=== PATIENT | female | born 1995 | race Caucasian/White ===

== ENCOUNTER 2017-02-17 08:37 | Emergency (ER) | payer OTHER, SELFPAY ==
[2017-02-17] MEDS ORDERED: Lactated Ringers 1,000 ML IV SCH (09:00)
[2017-02-17] MEDS ORDERED: Ondansetron 4 MG Tab.DIS PO ONE (09:01)
[2017-02-17] MEDS ORDERED: HYDROmorphone 2 MG/ML SDV IVPUSH ONE ×3 (09:01→11:37)
--- NOTE | 2017-02-17 09:08 | EDM.PDOC ---
ED HPI GENERAL MEDICAL PROBLEM - General Chief Complaint: Abdominal Pain Stated Complaint: STOMACH PAIM RT SIDE Time Seen by Provider: 02/17/17 08:50 Source of Information: Reports: Patient History Limitations: Reports: No Limitations - History of Present Illness INITIAL COMMENTS - FREE TEXT/NARRATIVE: 21 yo female awoke about 0400h today with R mid abdominal pain. Has nausea. No fever. No hx of any prior abdominal surgeries. Says she is not . Last BM was yesterday. No urinary sx's. Pain has gotten slightly worse since its onset, but does not move around. Onset: Today Onset Date: 02/17/17 Onset Time: 04:00 Duration: Hour(s):, Getting Worse Location: Reports: Abdomen Quality: Reports: Ache Severity: Moderate Improves with: Reports: Immobilization Worsens with: Reports: Movement Context: Reports: Other (unknown, no hx of the same.) Associated Symptoms: Reports: Nausea/Vomiting (No vomiting yet.) Treatments CARTOGRAPHY TECHNICIAN: Reports: Other (see below) (none) Other Treatments CARTOGRAPHY TECHNICIAN: none Right Abdominal Pain Score (Numeric/FACES): 10 - Related Data Allergies Allergy/AdvReac Type Severity Reaction Status Date / Time cats Allergy Hives Uncoded 06/01/15 16:31 Home Meds: Home Meds Norethindrone AC-Eth Estradiol [Gildess 1 mg-20 Mcg Tablet] 1 tab PO DAILY 06/01 [History] Acetaminophen/HYDROcodone [Dyer 325-5 MG] 1 - 2 tab PO Q4H PRN #8 tab 02/17/17 [Rx] Ondansetron [Zofran ODT] 4 mg PO Q6H PRN #4 tab.dis 02/17/17 [Rx] Past Medical History - Past Health History Medical/Surgical History: Denies Medical/Surgical History Social & Family History - Tobacco Use Smoking Status *Q: Never Smoker Second Hand Smoke Exposure: No - Alcohol Use Days Per Week of Alcohol Use: 0 - Recreational Drug Use Recreational Drug Use: No ED ROS GENERAL - Review of Systems Review Of Systems: See Below Constitutional: Reports: No Symptoms HEENT: Reports: No Symptoms Respiratory: Reports: No Symptoms Cardiovascular: Reports: No Symptoms Endocrine: Reports: No Symptoms GI/Abdominal: Reports: Abdominal Pain, Decreased Appetite, Nausea. Denies: Black Stool, Bloody Stool, Constipation, Diarrhea, Distension, Flatus, Hematemesis, Hematochezia, Melena, Mucous in Stool, Stool Incontinence, Vomiting : Reports: No Symptoms Musculoskeletal: Reports: No Symptoms Skin: Reports: No Symptoms Neurological: Reports: No Symptoms Psychiatric: Reports: No Symptoms ED EXAM, GI/ABD - Physical Exam Exam: See Below Exam Limited By: No Limitations General Appearance: Alert, WD/WN, No Apparent Distress Eyes: Bilateral: Normal Appearance, EOMI Ears: Normal External Exam, Normal Canal, Hearing Grossly Normal, Normal TMs Nose: Normal Inspection, Normal Mucosa, No Blood Throat/Mouth: Normal Inspection, Normal Lips, Normal Teeth, Normal Oropharynx, Normal Voice, No Airway Compromise Head: Atraumatic, Normocephalic Neck: Normal Inspection, Supple, Non-Tender Respiratory/Chest: No Respiratory Distress, Lungs Clear, Normal Breath Sounds, No Accessory Muscle Use Cardiovascular: Regular Rate, Rhythm, No Edema GI/Abdominal Exam: Soft, No Distention, Rebound (mild), Tender (R mid abdominal area, just above McBurney's Point.). No: Distended, Guarding, Rigid Back Exam: Normal Inspection, Full Range of Motion. No: CVA Tenderness (R), CVA Tenderness (L) Extremities: Normal Inspection, Normal Range of Motion, Non-Tender, No Pedal Edema Neurological: Alert, Oriented, CN II-XII Intact, Normal Cognition, No Motor/ Sensory Deficits Psychiatric: Normal Affect, Normal Mood Skin Exam: Warm, Dry, Intact, Normal Color, No Rash Lymphatic: No Adenopathy Course - Vital Signs Text/Narrative:: LR IV @ 150 ml/h, Zofran ODT 4 mg SL, Dilaudid 0.5 mg IV x 2 + 1 mg IV, Toradol 30 mg IV US of abd/pelvis-Free pelvic fluid, no other pathology, suspect ruptured ovarian cyst. Was given a lunch tray which resulted in an emesis, Reglan 10 mg IV given Last Recorded V/S: Last Vital Signs Temp 36.8 C 02/17/17 08:47 Pulse 76 02/17/17 13:45 Resp 16 02/17/17 13:45 BP 118/76 02/17/17 13:45 Pulse Ox 98 02/17/17 13:45 - Orders/Labs/Meds Orders: Active Orders 24 hr Category Date Time Status Lactated Ringers [Ringers, Lactated] 1,000 ml Med 02/17/17 09:00 Active IV ASDIRECTED Medication Orders Lactated Ringer's (Ringers, Lactated) 1,000 mls @ 150 mls/hr IV ASDIRECTED GABE Last Admin: 02/17/17 09:21 Dose: 150 mls/hr Labs: Laboratory Tests 02/17/17 02/17/17 02/17/17 Range/Units 09:05 09:05 09:40 WBC 6.4 (4.5-12.0) X10-3/uL RBC 4.84 (3.23-5.20) x10(6)uL Hgb 14.4 (11.5-15.5) g/dL Hct 43.1 (30.0-51.3) % MCV 89.1 (80-96) fL MCH 29.8 (27.7-33.6) pg MCHC 33.4 (32.2-35.4) g/dL RDW 12.0 (11.5-15.5) % Plt Count 243 (125-369) X10(3)uL Sodium 138 (135-145) mmol/L Potassium 3.8 (3.5-5.3) mmol/L Chloride 105 (100-110) mmol/L Carbon Dioxide 25 (23-29) mmol/L BUN 20 (5-20) mg/dL Creatinine 1.0 (0.5-1.0) mg/dL Est Cr Clr Drug Dosing 71.57 mL/min Estimated GFR (MDRD) > 60 (>60) BUN/Creatinine Ratio 20.0 (9-20) Glucose 93 (80-116) mg/dL Calcium 9.3 (8.2-10.1) mg/dL Urine Color (YELLOW) Urine Appearance (CLEAR) Urine pH (5.0-6.5) Ur Specific [place] (1.010-1.025) Urine Protein (NEGATIVE) mg/dL Urine Glucose (UA) (NEGATIVE) mg/dL Urine Ketones (NEGATIVE) mg/dL Urine Occult Blood (NEGATIVE) Urine Nitrite (NEGATIVE) Urine Bilirubin (NEGATIVE) Urine Urobilinogen (NEGATIVE) mg/dL Ur Leukocyte Esterase (NEGATIVE) Urine RBC (0) Urine WBC (0) Ur Squamous Epith Cells (NS,R,O) Urine Bacteria (NS) Urine HCG, Qual Negative (NEGATIVE) 02/17/17 Range/Units 09:40 WBC (4.5-12.0) X10-3/uL RBC (3.23-5.20) x10(6)uL Hgb (11.5-15.5) g/dL Hct (30.0-51.3) % MCV (80-96) fL MCH (27.7-33.6) pg MCHC (32.2-35.4) g/dL RDW (11.5-15.5) % Plt Count (125-369) X10(3)uL Sodium (135-145) mmol/L Potassium (3.5-5.3) mmol/L Chloride (100-110) mmol/L Carbon Dioxide (23-29) mmol/L BUN (5-20) mg/dL Creatinine (0.5-1.0) mg/dL Est Cr Clr Drug Dosing mL/min Estimated GFR (MDRD) (>60) BUN/Creatinine Ratio (9-20) Glucose (80-116) mg/dL Calcium (8.2-10.1) mg/dL Urine Color Yellow (YELLOW) Urine Appearance Clear (CLEAR) Urine pH 5.0 (5.0-6.5) Ur Specific [place] 1.020 (1.010-1.025) Urine Protein Negative (NEGATIVE) mg/dL Urine Glucose (UA) Normal (NEGATIVE) mg/dL Urine Ketones Negative (NEGATIVE) mg/dL Urine Occult Blood Negative (NEGATIVE) Urine Nitrite Negative (NEGATIVE) Urine Bilirubin Negative (NEGATIVE) Urine Urobilinogen Normal (NEGATIVE) mg/dL Ur Leukocyte Esterase Negative (NEGATIVE) Urine RBC 0-5 (0) Urine WBC 5-10 (0) Ur Squamous Epith Cells Few H (NS,R,O) Urine Bacteria Many H (NS) Urine HCG, Qual (NEGATIVE) Meds: Medications Generic Name Dose Route Start Last Admin Trade Name Freq PRN Reason Stop Dose Admin Lactated Ringer's 1,000 mls @ 150 mls/hr 02/17/17 09:00 02/17/17 09:21 Ringers, Lactated IV 150 mls/hr ASDIRECTED GABE Administration Discontinued Medications Generic Name Dose Route Start Last Admin Trade Name Freq PRN Reason Stop Dose Admin Hydromorphone HCl 0.5 mg 02/17/17 09:01 02/17/17 09:18 Dilaudid IVPUSH 02/17/17 09:02 0.5 mg ONETIME ONE Administration Hydromorphone HCl 0.5 mg 02/17/17 10:09 02/17/17 10:16 Dilaudid IVPUSH 02/17/17 10:10 0.5 mg ONETIME ONE Administration Hydromorphone HCl 1 mg 02/17/17 11:37 02/17/17 11:44 Dilaudid IVPUSH 02/17/17 11:38 1 mg ONETIME ONE Administration Ketorolac Tromethamine 30 mg 02/17/17 11:43 02/17/17 11:47 Toradol IVPUSH 02/17/17 11:44 30 mg ONETIME ONE Administration Metoclopramide HCl 10 mg 02/17/17 13:25 02/17/17 13:47 Reglan IVPUSH 02/17/17 13:26 10 mg ONETIME ONE Administration Ondansetron HCl 4 mg 02/17/17 09:01 02/17/17 09:19 Zofran Odt PO 02/17/17 09:02 4 mg ONETIME ONE Administration Departure - Departure Time of Disposition: 15:20 Disposition: Home, Self-Care 01 Condition: Fair Clinical Impression: Ruptured ovarian cyst - Discharge Information Prescriptions: Acetaminophen/HYDROcodone [Dyer 325-5 MG] 1 - 2 tab PO Q4H PRN #8 tab PRN Reason: Pain Ondansetron [Zofran ODT] 4 mg PO Q6H PRN #4 tab.dis PRN Reason: Nausea Referrals: Puma Starks MD [Primary Care Provider] - Forms: ED Department Discharge Additional Instructions: Take Dyer and/or ibuprofen as needed for pain relief. Take Zofran as needed for nausea control. Rest today. Clear liquids with slow advancement of diet as tolerated. Recheck tomorrow morning if pain persists. No driving today. - My Orders Last 24 Hours: My Active Orders 02/17/17 09:00 Lactated Ringers [Ringers, Lactated] 1,000 ml IV ASDIRECTED - Assessment/Plan Last 24 Hours: My Active Orders 02/17/17 09:00 Lactated Ringers [Ringers, Lactated] 1,000 ml IV ASDIRECTED
[2017-02-17] MEDS ORDERED: Ketorolac 30 MG/ML SDV IVPUSH ONE (11:43)
[2017-02-17] MEDS ORDERED: Metoclopramide 10 MG/2 ML SDV IVPUSH ONE (13:25)
--- NOTE | 2017-02-17 14:01 | US ---
INDICATION: Periumbilical and right lower quadrant abdominal pain with normal lab work. ULTRASOUND ABDOMEN COMPLETE: Multiple ultrasonic images revealed the gallbladder to be normal in size. It measured approximately 6 x 1.4 x 3 cm, with no calculi, sludge, wall thickening, pericholecystic fluid, or positive ultrasonic Kirk sign. There was, however, noted one tiny crystal floating within the bile of the gallbladder. This is not felt to be of significance at this time. The common bile duct was normal in caliber at 2.9 mm. The liver, both kidneys, aorta, and pancreas appeared normal with no mass lesions or free fluid collections identified in the abdomen. The area of the appendix showed no abnormalities visible. The spleen appeared normal. The abdominal aorta and IVC were unremarkable. The IVC was phasic. IMPRESSION: Normal abdominal ultrasound. MTDD
--- NOTE | 2017-02-17 14:12 | US ---
INDICATION: Right lower quadrant abdominal pain with normal labs. ULTRASOUND OF THE PELVIS, LIMITED, NON-OB: Multiple ultrasonic images were obtained with transabdominal probe. They were limited due to a large amount of intestinal gas. No gross abnormality was seen - no adnexal mass lesions or free fluid collections were identified on transabdominal probe ultrasound. Transvaginal probe ultrasound will be necessary for further evaluation. INDICATION: Periumbilical pain, right lower quadrant abdominal pain/need better visualization of the uterus and adnexal areas than was possible with the transabdominal probe. TRANSVAGINAL PELVIC ULTRASOUND, NON-OB: Utilizing transvaginal probe, multiple ultrasonic images were obtained and revealed the uterus to be retroflexed. A moderately large amount of free pelvic fluid is noted in the posterior cul-de- sac, likely on the basis of recently involuting ovarian cyst. The uterus measured 5.6 x 3.3 x 3.5 x 1.6 cm and had a normal appearance with normal endometrial cavity echo of 1.6 mm. Right ovary measured 3.3 x 1.3 x 2.8 cm with follicles present. No significant mass could be identified in that area. The left ovary measured 2.8 x 1.3 x 3 cm with only follicles present and no significant mass in the area of the left ovary. No adnexal mass lesions were identified. IMPRESSION: Moderate amount of free pelvic fluid in the posterior cul-de-sac, likely physiologic, but should be correlated clinically. The uterus is retroflexed. Pelvic ultrasound otherwise unremarkable. Report was called to Dr. Gilbert at 1215 hours, 02/17/2017. [facility] [place] [facility]
[2017-02-17 15:16] VITALS: BP 106/60
== END 2017-02-17 15:30 | disposition home or self-care (01) ==
LOC: FB.ED 08:37
DX: N83.202 Unspecified ovarian cyst, left side (principal); N83.201 Unspecified ovarian cyst, right side; Z91.048 Other nonmedicinal substance allergy status; Z79.899 Other long term (current) drug therapy
CPT/HCPCS: 76700; 76830; 76857; 80048; 81001; 81025; 85027; 96365; 96366; 96375; 96376; 99284; A9270; J1170; J1885; J2765; J7120; 96361; 96374

== ENCOUNTER 2017-02-19 14:36 | Day surgery (SDC) | payer OTHER ==
[2017-02-19] MEDS ORDERED: cefOXitin 2 GM in Sodium Chloride 0.9% 100 ML IV ONE ×2 (14:45→14:49)
[2017-02-19] MEDS ORDERED: Sodium Chloride 0.9% 10 ML Syringe FLUSH PRN (14:49)
--- NOTE | 2017-02-19 14:57 | PCM.SN ---
- Free Text/Narrative Note: H+P dictated. risk of procedure were explained to the pt to include bleeding, infection, injury to surrounding structures as well as conversion to open. She asks us to proceed.
[2017-02-19] MEDS: Lactated Ringers 1,000 ML IV SCH (15:00)
[2017-02-19] MEDS ORDERED: fentaNYL 100 MCG/2 ML SDV IVPUSH PRN (15:26)
[2017-02-19] MEDS ORDERED: Lactated Ringers 1,000 ML IV SCH (15:30)
[2017-02-19] MEDS ORDERED: Rocuronium 50 MG/5 ML Vial IV ONE (15:30)
[2017-02-19] MEDS ORDERED: Ondansetron 4 MG/2 ML SDV IVPUSH ONE (15:30)
[2017-02-19] MEDS ORDERED: Glycopyrrolate 0.2 MG/ML 5 ML MDV IV ONE (15:30)
[2017-02-19] MEDS ORDERED: Neostigmine Methylsulfate 10 MG/10 ML MDV IVPUSH ONE (15:30)
[2017-02-19] MEDS ORDERED: fentaNYL 100 MCG/2 ML SDV IV ONE (15:30)
[2017-02-19] MEDS ORDERED: Dexamethasone 4 MG/ML 5 ML MDV IVPUSH ONE (15:30)
[2017-02-19] MEDS ORDERED: Ketorolac 30 MG/ML SDV IVPUSH ONE (15:30)
[2017-02-19] MEDS ORDERED: Midazolam 1 MG/ML 2 ML SDV IV ONE (15:30)
[2017-02-19] MEDS ORDERED: Propofol 200 MG/20 ML SDV IV ONE (15:30)
[2017-02-19] MEDS ORDERED: Succinylcholine 200 MG/10 ML MDV IV ONE (15:30)
[2017-02-19] MEDS ORDERED: HYDROmorphone 2 MG/ML SDV IV ONE (15:30)
[2017-02-19] MEDS ORDERED: Lidocaine 1% with EPINEPHrine 1:100,000 20 ML MDV INJECT ONE (15:46)
[2017-02-19] MEDS ORDERED: Bupivacaine 0.5% 30 ML SDV INJECT ONE (15:46)
--- NOTE | 2017-02-19 15:53 | PREOP ---
ADMISSION DATE: 02/19/2017 CHIEF COMPLAINT: Right lower quadrant abdominal pain. HISTORY OF PRESENT ILLNESS: This is a 21-year-old white female, who apparently presented to the emergency department on Friday with a complaint of abdominal pain located in the periumbilical area, right side. Lab work was normal as was her test. She underwent a subsequent workup, which included a pelvic and abdominal ultrasound which were negative. It was felt at that time that she most likely had a ruptured ovarian cyst on that side. The pain has persisted, and has gotten progressively worse and has not affected her appetite nor has she noted any fever or chills. She presented to the clinic today and was referred for an ultrasound. By verbal report via Dr. Starks, via Dr. Vazquez, the patient has findings consistent with an acute appendicitis. The patient currently denies any fever or chills. Pain is located over McBurney's point, anorexia is or plus minus. SOCIAL HISTORY: The patient does not smoke. She has an occasional drink. FAMILY HISTORY: Significant only for hypertension in her grandparents. PAST MEDICAL HISTORY: Negative. PAST SURGICAL HISTORY: Negative. ALLERGY: She has an allergy to cats. MEDICATIONS: 1. Acetaminophen hydrocodone 325/5 mg one to two every 4 to 6 hours. 2. Norethindrone ac-eth 1 mg/20 mcg one p.o. daily. 3. Zofran 4 mg p.o. daily. REVIEW OF SYSTEMS: CONSTITUTIONAL: The patient denies any fever or chills. HEENT: She denies any HEENT issues except for the runny nose. She denies any eye issues. Denies any wheezing, cough, or shortness of breath. She denies any chest pain or irregular heartbeat. ABDOMINAL or GI: See HPI. GENITOURINARY: Denies any burning when she urinates. MUSCULOSKELETAL: She notes some occasional back pain. NEUROLOGIC: She has no issues, and her only significant allergy is to cats and to pollen. PHYSICAL EXAMINATION: GENERAL: This is a well-developed, well-nourished, white female appearing in no acute distress. VITAL SIGNS: Reviewed. They are stable. She is afebrile. She weighs in at 61.23 kg. HEENT: Grossly within normal limits. LUNGS: Clear to auscultation. HEART: Regular rate and rhythm. ABDOMINAL: Exam revealed some mild tenderness and rebound in the right side. LABORATORY DATA: I had reviewed the CT scan and does appear that she has an enlarged appendix along the right pelvic gutter. Her lab work on Friday was negative as well as her HCG and there was no intrauterine evidence of on ultrasound. We will be proceeding with some lab work. ASSESSMENT: Acute appendicitis on clinical exam as well on CT scan. PLAN: Laparoscopic appendectomy. Procedure and risks are explained to the patient, to include bleeding, infection, removal of a normal appendix, injury to the bowel or bladder or blood vessel as well as conversion to open, as well as possible need for intestinal resection. The patient expresses understanding, and she asks us to proceed. /[id number] RUBEN/LUIS
--- NOTE | 2017-02-19 16:25 | PCM.OPNOTE ---
- General Post-Op/Procedure Note Date of Surgery/Procedure: 02/19/17 Operative Procedure(s): lap appendectomy Findings: enlarged appendix c/w appendicitis Pre Op Diagnosis: appendicitis Post-Op Diagnosis: enlarged appendix c/w appendicitis Anesthesia Technique: General ET Tube, Local (9 ml 1 % lido with epi/0.5% buvipicaine) Primary Surgeon: Omar Prado Anesthesia Provider: Tay Chavira Pathology: appendix EBL in mLs: 10 Complications: None Condition: Good Free Text/Narrative:: see dictation
[2017-02-19] MEDS ORDERED: Ondansetron 4 MG/2 ML SDV IVPUSH PRN (16:27)
[2017-02-19] MEDS: Morphine 2 MG/ML Syringe IVPUSH PRN ×3 (18:18→22:46)
--- NOTE | 2017-02-19 22:49 | OR ---
DATE OF OPERATION: 02/19/2017 SURGEON: Omar Prado MD PROCEDURE PERFORMED: Laparoscopic appendectomy. PREOPERATIVE DIAGNOSIS: Acute appendicitis. POSTOPERATIVE DIAGNOSIS: Acute appendicitis. INDICATIONS FOR PROCEDURE: This is a 21-year-old white female, who is referred by Dr. Puma Starks. The patient apparently has had a history of abdominal pain since Friday on her visit to the emergency department on Friday morning, no evidence of any significant GI pathology was noted. She has had persistent abdominal pain located primarily in the right lower quadrant. CT scan today demonstrated a markedly enlarged appendix consistent with appendicitis. She was offered and accepted a laparoscopic appendectomy. It should be noted the remainder of her lab work was normal. She has a negative HCG, but given her clinical exam as well as a CT scan findings, the surgery appeared to be indicating. INTRAOPERATIVE FINDINGS: As follows, enlarged appendix. She had a high riding cecum. Appendiceal diameter was approximately 1 cm in diameter and it appeared to be inflamed. DESCRIPTION OF PROCEDURE: After an excellent general anesthetic was administered, the patient was prepped and draped in the usual sterile manner. A total of 9 mL of 1:1 mixture of 1% lidocaine with epinephrine and 0.5% bupivacaine were used to infiltrate all our trocar sites. We started by infiltrating the area of the umbilicus just below in the midline. A vertical midline incision was carried out approximately 2 cm in diameter and 2 stay sutures were placed on either side of the midline fascia, which was then elevated after using blunt dissection to expose. Incision was made through the midline and the peritoneal cavity was entered. A 10.5 mm Tawana trocar was then inserted into the patient's abdomen. An additional 5-mm trocar was placed below the periumbilical port and an additional wound was placed at the lower aspect of the right upper quadrant after we determined where the appendix was. Cecum was grasped. Mesoappendix was carefully dissected creating a rent in the mesoappendix at the base of the appendix. The appendiceal base was then transected with two firings of 3.5 mm load of an Endo-MASHA. An additional 3.5 mm load was used to transect the mesoappendix. The specimen was passed into a bag and passed off the field. The area was irrigated, and after assuring excellent hemostasis, the two 5 mm ports were removed under direct visualization, and the 10 mm port was removed releasing the pneumoperitoneum. A [id number] Vicryl was used to close the fascial defect. Two stay sutures were tied to each other and the skin was then closed with a running subcu 4-0 Vicryl. Steri- Strips were applied. Needle, sponge, and instrument counts were reported as correct. The patient was taken to the recovery room in good condition having tolerated the procedure well. /[id number] /MODL
[2017-02-20] MEDS: Ketorolac 30 MG/ML SDV IVPUSH SCH ×2 (00:06→08:11)
[2017-02-20] MEDS: Lactated Ringers 1,000 ML IV SCH (01:02)
[2017-02-20] MEDS: Morphine 2 MG/ML Syringe IVPUSH PRN ×2 (01:03→06:53)
--- NOTE | 2017-02-20 08:41 | PCM.SURGPN ---
- General Info Date of Service: 02/20/17 Date of Surgery/Procedure: 02/19/17 POD#: 1 Functional Status: Reports: Pain Controlled, Tolerating Diet, Ambulating, Urinating - Review of Systems Pulmonary: Reports: No Symptoms Cardiovascular: Reports: No Symptoms Gastrointestinal: Reports: Abdominal Pain (better) - Patient Data Vitals - Most Recent: Last Vital Signs Temp 37.0 C 02/20/17 08:30 Pulse 51 L 02/20/17 08:30 Resp 16 02/20/17 08:30 BP 114/65 02/20/17 08:30 Pulse Ox 99 02/20/17 08:30 Weight - Most Recent: 61.235 kg I&O - Last 24 Hours: Intake & Output 02/19/17 02/20/17 02/20/17 22:59 06:59 14:59 Intake Total 1125 1172 Output Total 900 Balance 1125 272 Lab Results Last 24 Hrs: Laboratory Results - last 24 hr 02/19/17 02/19/17 02/19/17 Range/Units 14:56 14:56 15:00 WBC 8.3 (4.5-12.0) X10-3/uL RBC 4.98 (3.23-5.20) x10(6)uL Hgb 14.7 (11.5-15.5) g/dL Hct 43.7 (30.0-51.3) % MCV 87.8 (80-96) fL MCH 29.5 (27.7-33.6) pg MCHC 33.6 (32.2-35.4) g/dL RDW 12.0 (11.5-15.5) % Plt Count 243 (125-369) X10(3)uL MPV 8.4 (7.4-10.4) fL Neut % (Auto) 71.1 (46-82) % Lymph % (Auto) 18.1 (13-37) % Garrett % (Auto) 9.1 (4-12) % Eos % (Auto) 1 (1.0-5.0) % Baso % (Auto) 0 (0-2) % Neut # (Auto) 5.9 (1.6-8.3) # Lymph # (Auto) 1.5 (0.6-5.0) # Garrett # (Auto) 0.8 (0.0-1.3) # Eos # (Auto) 0.1 (0.0-0.8) # Baso # (Auto) 0.0 (0.0-0.2) # Sodium 137 (135-145) mmol/L Potassium 3.7 (3.5-5.3) mmol/L Chloride 102 (100-110) mmol/L Carbon Dioxide 24 (23-29) mmol/L BUN 17 (5-20) mg/dL Creatinine 1.1 H (0.5-1.0) mg/dL Est Cr Clr Drug Dosing 65.06 mL/min Estimated GFR (MDRD) > 60 (>60) BUN/Creatinine Ratio 15.5 (9-20) Glucose 83 (80-116) mg/dL Calcium 9.6 (8.2-10.1) mg/dL Urine HCG, Qual Negative (NEGATIVE) 02/20/17 Range/Units 06:15 WBC 7.1 (4.5-12.0) X10-3/uL RBC 4.11 (3.23-5.20) x10(6)uL Hgb 12.3 (11.5-15.5) g/dL Hct 36.3 (30.0-51.3) % MCV 88.3 (80-96) fL MCH 29.9 (27.7-33.6) pg MCHC 33.8 (32.2-35.4) g/dL RDW 11.6 (11.5-15.5) % Plt Count 200 (125-369) X10(3)uL MPV 8.8 (7.4-10.4) fL Neut % (Auto) 71.0 (46-82) % Lymph % (Auto) 17.5 (13-37) % Garrett % (Auto) 11.3 (4-12) % Eos % (Auto) 0 L (1.0-5.0) % Baso % (Auto) 0 (0-2) % Neut # (Auto) 5.1 (1.6-8.3) # Lymph # (Auto) 1.2 (0.6-5.0) # Garrett # (Auto) 0.8 (0.0-1.3) # Eos # (Auto) 0.0 (0.0-0.8) # Baso # (Auto) 0.0 (0.0-0.2) # Sodium (135-145) mmol/L Potassium (3.5-5.3) mmol/L Chloride (100-110) mmol/L Carbon Dioxide (23-29) mmol/L BUN (5-20) mg/dL Creatinine (0.5-1.0) mg/dL Est Cr Clr Drug Dosing mL/min Estimated GFR (MDRD) (>60) BUN/Creatinine Ratio (9-20) Glucose (80-116) mg/dL Calcium (8.2-10.1) mg/dL Urine HCG, Qual (NEGATIVE) Med Orders - Current: Current Medications Lactated Ringer's (Ringers, Lactated) 1,000 mls @ 125 mls/hr IV ASDIRECTED [facility] Last Admin: 02/20/17 01:02 Dose: 125 mls/hr Ketorolac Tromethamine (Toradol) 30 mg IVPUSH Q8H [facility] Stop: 02/24/17 00:01 Last Admin: 02/20/17 08:11 Dose: 30 mg Morphine Sulfate (Morphine) 2 mg IVPUSH Q1H PRN PRN Reason: Pain (severe 7-10) Last Admin: 02/20/17 06:53 Dose: 2 mg Ondansetron HCl (Zofran) 4 mg IVPUSH Q6H PRN PRN Reason: Nausea/Vomiting Sodium Chloride (Saline Flush) 10 ml FLUSH ASDIRECTED PRN PRN Reason: Keep Vein Open Discontinued Medications Bupivacaine HCl (Marcaine 0.5%) 10 ml INJECT .STK-MED ONE Stop: 02/19/17 15:47 Last Admin: 02/19/17 15:46 Dose: 10 ml Fentanyl (Sublimaze) 50 mcg IVPUSH Q5M PRN PRN Reason: Pain (severe 7-10) Cefoxitin Sodium 2 gm/ Sodium (Chloride) 100 mls @ 200 mls/hr IV ONETIME ONE Stop: 02/19/17 15:14 Last Admin: 02/19/17 15:08 Dose: 200 mls/hr Lactated Ringer's (Ringers, Lactated) 1,000 mls @ 0 mls/hr IV ASDIRECTED GABE PRN Reason: KVO Lidocaine/Epinephrine (Xylocaine 1% With Epinephrine 1:100,000) 10 ml INJECT .STK-MED ONE Stop: 02/19/17 15:47 Last Admin: 02/19/17 15:46 Dose: 10 ml - Exam Wound/Incisions: Dressing Dry and Intact Lungs: Clear to Auscultation, Normal Respiratory Effort Cardiovascular: Regular Rate, Regular Rhythm GI/Abdominal Exam: Normal Bowel Sounds, Soft, No Distention, Tender (mild incisional tenderness ) Skin: Warm, Dry, Intact - Problem List & Annotations (1) Appendicitis SNOMED Code(s): 94063066 Code(s): K37 - UNSPECIFIED APPENDICITIS Status: Resolved Current Visit: Yes Qualifiers: Appendicitis type: acute appendicitis Acute appendicitis type: with localized peritonitis Qualified Code(s): K35.3 - Acute appendicitis with localized peritonitis - Problem List Review Problem List Initiated/Reviewed/Updated: Yes - My Orders Last 24 Hours: Active Orders 24 hr Category Date Time Status Patient Status [ADT] Routine ADT 02/19/17 14:48 Active Ambulate [RC] .TID Care 02/19/17 16:25 Active Communication Order [RC] ASDIRECTED Care 02/19/17 15:26 Active Cooling Warming Measures [RC] ASDIRECTED Care 02/19/17 15:26 Active Notify Provider Vital Signs [RC] PRN Care 02/19/17 16:25 Active Notify Provider [RC] PRN Care 02/19/17 15:26 Active Oxygen Therapy [RC] PRN Care 02/19/17 16:25 Active RT Incentive Spirometry [RC] Q2HWA Care 02/19/17 16:25 Active Ready for Discharge [RC] PER UNIT ROUTINE Care 02/19/17 15:26 Active Vital Signs [RC] Q4HR Care 02/19/17 16:25 Active Clear Liquid Diet [DIET] Diet 02/19/17 Dinner Ordered Ketorolac [Toradol] Med 02/20/17 00:00 Active 30 mg IVPUSH Q8H Lactated Ringers [Ringers, Lactated] 1,000 ml Med 02/19/17 15:00 Active IV ASDIRECTED Morphine Med 02/19/17 16:25 Active 2 mg IVPUSH Q1H PRN Ondansetron [Zofran] Med 02/19/17 16:27 Active 4 mg IVPUSH Q6H PRN Sodium Chloride 0.9% [Saline Flush] Med 02/19/17 14:49 Active 10 ml FLUSH ASDIRECTED PRN Peripheral IV Insertion Adult [OM.PC] Routine Oth 02/19/17 14:49 Ordered Sequential Compression Device [OM.PC] Routine Oth 02/19/17 14:49 Ordered Resuscitation Status Routine Resus Stat 02/19/17 14:48 Ordered Medication Orders Lactated Ringer's (Ringers, Lactated) 1,000 mls @ 125 mls/hr IV ASDIRECTED GABE Last Admin: 02/20/17 01:02 Dose: 125 mls/hr Infusion: 02/19/17 23:00 Dose: 125 mls/hr Admin: 02/19/17 15:00 Dose: 125 mls/hr Ketorolac Tromethamine (Toradol) 30 mg IVPUSH Q8H GABE Stop: 02/24/17 00:01 Last Admin: 02/20/17 08:11 Dose: 30 mg Admin: 02/20/17 00:06 Dose: 30 mg Morphine Sulfate (Morphine) 2 mg IVPUSH Q1H PRN PRN Reason: Pain (severe 7-10) Last Admin: 02/20/17 06:53 Dose: 2 mg Admin: 02/20/17 01:03 Dose: 2 mg Admin: 02/19/17 22:46 Dose: 2 mg Admin: 02/19/17 20:57 Dose: 2 mg Admin: 02/19/17 18:18 Dose: 2 mg Ondansetron HCl (Zofran) 4 mg IVPUSH Q6H PRN PRN Reason: Nausea/Vomiting Sodium Chloride (Saline Flush) 10 ml FLUSH ASDIRECTED PRN PRN Reason: Keep Vein Open - Assessment Assessment (Free Text/Narrative):: POD 1 unremarkable exam - Plan Plan (Free Text/Narrative):: will advance diet if tolerates will discharge later today
[2017-02-20] MEDS ORDERED: Acetaminophen/HYDROcodone 325-5 MG Tab PO PRN (08:43)
[2017-02-20 13:05] VITALS: BP 116/56
--- NOTE | 2017-02-21 16:39 | PCM.SN ---
- Free Text/Narrative Note: Addendum to Anesthesia Record:02/19/17 1630 zofran 4 mg IV administered
== END 2017-02-20 13:05 | disposition home or self-care (01) ==
LOC: FB.SDS 14:36 → FB.MS 17:09 → FB.SDS 02-20 13:05
PROVIDERS: ATTEND Surgery
DX: D12.1 Benign neoplasm of appendix (principal); K35.80 Unspecified acute appendicitis; J30.81 Allergic rhinitis due to animal (cat) (dog) hair and dander; Z79.899 Other long term (current) drug therapy
CPT/HCPCS: 36415; 44970; 74177; 80048; 81025; 85025; 88304; A9270; J0330; J0694; J1100; J1170; J1885; J2250; J2270; J2405; J2704; J2710; J3010; J7030; J7050; J7120; Q9967

== ENCOUNTER 2021-05-02 18:53 | Emergency (ER) | payer OTHER ==
--- NOTE | 2021-05-02 19:03 | EDM.PDOC ---
ED HPI GENERAL MEDICAL PROBLEM - General Stated Complaint: ABD HERNIA Time Seen by Provider: 05/02/21 19:03 Source of Information: Reports: Patient History Limitations: Reports: No Limitations - History of Present Illness INITIAL COMMENTS - FREE TEXT/NARRATIVE: 25-year-old female who reports that she went back to work yesterday and she was helping to transfer a patient and she felt a pull in her left lower abdomen and since then she has been having pain in her left lower abdomen. The significant other and the patient both noted what they thought was a "lump" in her left lower abdomen and swelling in the area and they were concerned that it could be a hernia. The patient is reporting the pain as an 8/10. It is worse with palpation and with movement. She has had nausea but no vomiting. She has been eating and drinking normally. There have been no fevers or chills. She has no burning with urination. She has no back or flank pain. She is just recently status post 7 to 8 weeks ago. She was concerned that she had maybe a hernia along the incision the pain as a sharp pain. It does not radiate. There are no other associated signs or symptoms. There are no other modifying factors. 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 (see below) Left Abdomen Pain Score (Numeric/FACES): 8 - Related Data Allergies Allergy/AdvReac Type Severity Reaction Status Date / Time cats Allergy Hives Uncoded 05/02/21 19:09 Home Meds: Home Meds Norethindrone AC-Eth Estradiol [Gildess 1 mg-20 Mcg Tablet] 1 tab PO DAILY 06/01/15 [History] Ondansetron [Zofran ODT] 4 mg PO Q6H PRN #4 tab.dis 02/17/17 [Rx] Ibuprofen 400 mg PO ASDIRECTED PRN 02/19/17 [History] Acetaminophen/HYDROcodone [HYDROcodone-Acetaminophen 5-325 MG *] 1 tab PO Q4H PRN #20 tablet 02/20/17 [Rx] Sulfamethoxazole/Trimethoprim [Sulfamethoxazole-Tmp Ds Tablet] 1 each PO BID 7 Days #14 tablet 05/02/21 [Rx] Past Medical History - Past Health History Medical/Surgical History: Denies Medical/Surgical History (No chronic medical problems. Surgical history as detailed below.) HEENT History: Reports: Impaired Vision - Infectious Disease History Infectious Disease History: Reports: Chicken Pox - Past Surgical History Female Surgical History: Reports: Section Social & Family History - Tobacco Use Tobacco Use Status *Q: Unknown Ever Used Tobacco (Nonsmoker) - Caffeine Use Caffeine Use: Reports: None - Alcohol Use Alcohol Use History: Yes Alcohol Use Frequency: Socially - Living Situation & Occupation Living situation: Reports: with Significant Other Occupation: Employed (Works with disabled people) ED ROS GENERAL - Review of Systems Review Of Systems: See Below Constitutional: Denies: Fever, Chills HEENT: Denies: Throat Pain, Throat Swelling Respiratory: Denies: Shortness of Breath, Cough Cardiovascular: Denies: Chest Pain, Palpitations GI/Abdominal: Reports: Abdominal Pain (4 quadrant abdominal pain that appears to be in the abdominal wall.), Nausea. Denies: Vomiting : Denies: Dysuria, Flank Pain, Hematuria Musculoskeletal: Denies: Neck Pain, Back Pain Skin: Denies: Rash Neurological: Denies: Dizziness, Headache Hematologic/Lymphatic: Denies: Easy Bleeding, Easy Bruising ED EXAM, GENERAL - Physical Exam Exam: See Below Exam Limited By: No Limitations General Appearance: Alert, WD/WN, Mild Distress (Nontoxic.) Eye Exam: Bilateral Eye: EOMI, Normal Inspection Ears: Normal External Exam, Hearing Grossly Normal Ear Exam: Bilateral Ear: Auricle Normal Nose: Normal Inspection, Normal Mucosa, No Blood Throat/Mouth: Normal Inspection, Normal Oropharynx, Normal Voice, No Airway Compromise Head: Atraumatic, Normocephalic Neck: Normal Inspection, Supple, Non-Tender, Full Range of Motion Respiratory/Chest: No Respiratory Distress, Lungs Clear, Normal Breath Sounds, No Accessory Muscle Use, Chest Non-Tender Cardiovascular: Normal Peripheral Pulses, Regular Rate, Rhythm, No Murmur Peripheral Pulses: 2+: Radial (L), Radial (R) GI/Abdominal: Normal Bowel Sounds, Soft, Tender (Tender over the left lower abdominal wall area. She is nontender elsewhere in her abdomen. There is no hernia defect noted with her lying or standing. The pain is above the incision in the incision appears to be healing normally and there is no erythema and no masses noted in it.) Back Exam: Normal Inspection. No: CVA Tenderness (R), CVA Tenderness (L) Extremities: Normal Inspection, Normal Range of Motion, Non-Tender, No Pedal Edema, Normal Capillary Refill Neurological: Alert, Oriented, CN II-XII Intact, Normal Cognition, No Motor/Sensory Deficits Psychiatric: Normal Affect Skin Exam: Warm, Dry, Intact, Normal Color, No Rash Course - Vital Signs Last Recorded V/S: Last Vital Signs Temp 37.4 C 05/02/21 19:10 Pulse 81 05/02/21 19:10 Resp 18 05/02/21 19:10 BP 147/93 H 05/02/21 19:10 Pulse Ox 98 05/02/21 19:10 - Orders/Labs/Meds Orders: Active Orders 24 hr Category Date Time Status CULTURE URINE [RM] Routine Lab 05/02/21 19:30 Received Sulfamethoxazole/Trimethoprim [Septra DS] Med 05/02/21 20:04 Once 1 tab PO ONETIME ONE Medication Orders Trimethoprim/Sulfamethoxazole (Sulfamethoxazole/Trimethoprim 800-160 Mg Tab) 1 tab PO ONETIME ONE Stop: 05/02/21 20:05 Labs: Laboratory Tests 05/02/21 05/02/21 Range/Units 19:30 19:30 Urine Color Yellow (YELLOW) Urine Appearance Cloudy (CLEAR) Urine pH 5.0 (5.0-6.5) Ur Specific Nabb 1.020 (1.010-1.025) Urine Protein Negative (NEGATIVE) mg/dL Urine Glucose (UA) Normal (NORMAL) mg/dL Urine Ketones Negative (NEGATIVE) mg/dL Urine Occult Blood Moderate H (NEGATIVE) Urine Nitrite Positive H (NEGATIVE) Urine Bilirubin Negative (NEGATIVE) Urine Urobilinogen Normal (NEGATIVE) mg/dL Ur Leukocyte Esterase Large H (NEGATIVE) Urine RBC 10-20 H (0-5) Urine WBC 50-75 H (0-5) Ur Squamous Epith Cells Moderate H (NS,R,O) Urine Bacteria Many H (NS) Urine HCG, Qual Negative (NEGATIVE) Meds: Medications Generic Name Dose Route Start Last Admin Trade Name Freq PRN Reason Stop Dose Admin Trimethoprim/Sulfamethoxazole 1 tab 05/02/21 20:04 Sulfamethoxazole/Trimethoprim 800-160 Mg Tab PO 05/02/21 20:05 ONETIME ONE - Re-Assessments/Exams Free Text/Narrative Re-Assessment/Exam: 05/02/21 19:50: There was no evidence of hernia on her exam. The urinalysis did show evidence of infection. The pain and the onset of the pain hit with a pulled muscle but she does have a UTI as well. I will give the patient one day off work and then light duty with no lifting, pushing or pulling for the next week. I will place her on Bactrim DS for the infection. She can take ibuprofen and Tylenol for the pain as needed. She should follow-up with her primary provider if she is having persisting pain or if she feels a "lump" in the area. P recautions and reasons for return to the emergency department were discussed with the patient and with her significant other while the patient was in the emergency department and were detailed in the patient's discharge instructions. Departure - Departure Time of Disposition: 20:00 Disposition: Home, Self-Care 01 Condition: Good Clinical Impression: Abdominal wall pain in left lower quadrant UTI (urinary tract infection) Qualifiers: Urinary tract infection type: site unspecified Hematuria presence: without hematuria Qualified Code(s): N39.0 - Urinary tract infection, site not specified - Discharge Information Prescriptions: Sulfamethoxazole/Trimethoprim [Sulfamethoxazole-Tmp Ds Tablet] 1 each PO BID 7 D ays #14 tablet Instructions: Urinary Tract Infection, Adult, [id number] Referrals: Puma Starks MD [Primary Care Provider] - Forms: ED Return to Work/School Form Additional Instructions: I did not see any evidence of a hernia. It is still possible that he have a hernia but I did not see evidence of that on your exam today. You appear to have pulled muscle in your left lower abdominal wall. He also have a urinary tract infection. I am placing you on antibiotics to treat for urinary tract infection (Bactrim DS). You can take ibuprofen and Tylenol as needed for ear pain. I have given you a note for no work until 05/04/2021 and 4 light-duty for 7 days. You should follow-up with your primary provider, particularly if the pain in your left lower abdomen is not weakly going away. Back to the emergency department for worsening pain, unrelenting vomiting, fever, a lump or mass in your abdominal wall that does not go away or any other concerning signs or symptoms. Sepsis Event Note (ED) - Focused Exam Vital Signs: Vital Signs Temp Pulse Resp BP Pulse Ox 05/02/21 19:10 37.4 C 81 18 147/93 H 98 - My Orders Last 24 Hours: My Active Orders 05/02/21 19:30 CULTURE URINE [RM] Routine 05/02/21 20:04 Sulfamethoxazole/Trimethoprim [Septra DS] 1 tab PO ONETIME ONE - Assessment/Plan Last 24 Hours: My Active Orders 05/02/21 19:30 CULTURE URINE [RM] Routine 05/02/21 20:04 Sulfamethoxazole/Trimethoprim [Septra DS] 1 tab PO ONETIME ONE
[2021-05-02] MEDS ORDERED: Sulfamethoxazole/Trimethoprim 800-160 MG Tab PO ONE (20:04)
[2021-05-02 20:16] VITALS: BP 114/74; PULSE 78
== END 2021-05-02 20:15 | disposition home or self-care (01) ==
LOC: FB.ED 18:53
DX: N39.0 Urinary tract infection, site not specified (principal); Z91.09 Other allergy status, other than to drugs and biological substances
CPT/HCPCS: 81001; 81025; 87086; 87088; 87186; 99284; A9270

== ENCOUNTER 2021-11-02 18:34 | Emergency (ER) | payer OTHER ==
[2021-11-02 19:09] VITALS: BP 117/68; PULSE 99
[2021-11-02 20:27] LABS: CORONAVIRUS COVID-19 NAA NEGATIVE (NEGATIVE)
[2021-11-02] MEDS: Amoxicillin/Clavulanate K 500-125 MG Tab PO ONE (20:55)
== END 2021-11-02 21:00 | disposition home or self-care (01) ==
LOC: FB.ED 18:34
DX: O99.611 Diseases of the digestive system complicating pregnancy, first trimester (principal); K52.9 Noninfective gastroenteritis and colitis, unspecified; K92.1 Melena; Z91.09 Other allergy status, other than to drugs and biological substances; Z20.822 Contact with and (suspected) exposure to COVID-19; Z3A.08 8 weeks gestation of pregnancy
CPT/HCPCS: 0241U; 36415; 80053; 81001; 85025; 86140; 87045; 87046; 87427; 89055; 99284; A9270-GY

== ENCOUNTER 2023-03-09 20:11 | Emergency (ER) | payer OTHER, MEDICAID ==
[2023-03-09 21:33] LABS: BASOPHILS PERCENT AUTO 0.3 % (0.2-1.5); EOSINOPHILS ABSOLUTE AUTO 0.4 x10-3/uL (0.0-0.8); EOSINOPHILS PERCENT AUTO 4.3 % (0.6-8.1); HEMOGLOBIN 14.7 g/dL (11.4-15.5); LYMPHOCYTES ABSOLUTE AUTO 3.3 x10-3/uL (1.0-4.4); LYMPHOCYTES PERCENT AUTO 35.6 % (18.4-52.1); MEAN CORPUSCULAR HEMOGLOBIN 29.2 pg (23.9-33.9); MEAN CORPUSCULAR HGB CONC 33.5 g/dL (31.9-34.8); MEAN CORPUSCULAR VOLUME 87.1 fL (76.7-100.5); MEAN PLATELET VOLUME 8.2 fL (7.1-12.4); MONOCYTES ABSOLUTE AUTO 0.7 x10-3/uL (0.3-1.0); NEUTROPHILS ABSOLUTE AUTO 4.7 x10-3/uL (1.5-6.3); NEUTROPHILS PERCENT AUTO 51.8 % (30.8-76.2); PLATELET COUNT,PLT 253 x10(3)uL (151-488); RED BLOOD CELL COUNT 5.05 x10(6)uL (3.60-5.20); RED CELL DISTRIBUTION WIDTH 13.6 % (12.3-16.5); WHITE BLOOD CELL COUNT,WBC 9.2 x10-3/uL (3.0-10.3)
[2023-03-09 21:34] LABS: BILIRUBIN,URINE NEGATIVE (NEGATIVE); GLUCOSE,URINE NORMAL (NORMAL); KETONES,URINE NEGATIVE (NEGATIVE); LEUKOCYTE ESTERASE,URINE MODERATE (NEGATIVE); NITRITE,URINE POSITIVE (NEGATIVE); OCCULT BLOOD,URINE MODERATE (NEGATIVE); PH,URINE 6.5 (5.0-6.5); PROTEIN,URINE NEGATIVE (NEGATIVE); UROBILINOGEN,URINE NORMAL (NEGATIVE)
[2023-03-09 21:35] LABS: BLOOD UREA NITROGEN,BUN 26 mg/dL (7-18); BUN/CREATININE RATIO 28.9 (9-20); CALCIUM 8.7 mg/dL (8.6-10.2); CARBON DIOXIDE,CO2 31 mmol/L (21-32); CHLORIDE,CL 102 mmol/L (100-110); CREATININE 0.9 mg/dL (0.55-1.02); ESTIMATED GFR 91 mL/min (>60); GLUCOSE RANDOM 90 mg/dL (80-116); POTASSIUM,K 3.8 mmol/L (3.5-5.3); SODIUM,NA 139 mmol/L (135-145)
[2023-03-09 21:37] LABS: C-REACTIVE PROTEIN 0.55 mg/dL (<0.33)
[2023-03-09 21:42] LABS: APPEARANCE,URINE CLOUDY (CLEAR); BACTERIA,URINE MANY (NS); COLOR,URINE YELLOW (YELLOW); RBC,URINE 0-5 (0-5); SQUAMOUS EPITHELIAL CELLS,UR FEW (NS,R,O); WBC,URINE 20-30 (0-5)
[2023-03-09 21:51] LABS: A/G RATIO 1.2; ALANINE AMINOTRANSFERASE,ALT 22 U/L (12-36); ALBUMIN 4.1 g/dL (3.5-5.2); ALKALINE PHOSPHATASE 65 IU/L (56-112); ASPARTATE AMNIOTRANSFERASE,AST 15 IU/L (5-25); BILIRUBIN TOTAL 0.3 mg/dL (0.1-1.3); PROTEIN TOTAL,TP 7.5 g/dL (6.0-8.0)
[2023-03-09] MEDS ORDERED: Sulfamethoxazole/Trimethoprim 800-160 MG Tab PO ONE (22:20)
[2023-03-09 22:34] VITALS: BP 121/75; PULSE 81
== END 2023-03-09 22:32 | disposition home or self-care (01) ==
LOC: FB.ED 20:11
DX: N39.0 Urinary tract infection, site not specified (principal); Z20.822 Contact with and (suspected) exposure to COVID-19; Z91.048 Other nonmedicinal substance allergy status
CPT/HCPCS: 36415; 80053; 81001; 81025; 83690; 85025; 86140; 87086; 87088; 87186; 87635; 99284; A9270; U0002

== ENCOUNTER 2023-11-21 12:35 | Emergency (ER) | payer MEDICAID, OTHER ==
[2023-11-21] MEDS ORDERED: Sodium Chloride 0.9% 10 ML Syringe FLUSH PRN (13:11)
[2023-11-21] MEDS: Sodium Chloride 0.9% 1,000 ML IV ONE ×2 (13:20→14:40)
[2023-11-21] MEDS: Promethazine 25 MG in Sodium Chloride 0.9% 50 ML IV ONE (13:28)
[2023-11-21 13:31] LABS: BASOPHILS PERCENT AUTO 0.2 % (0.2-1.5); EOSINOPHILS ABSOLUTE AUTO 0.1 x10-3/uL (0.0-0.8); EOSINOPHILS PERCENT AUTO 0.7 % (0.6-8.1); HEMATOCRIT 44.8 % (34.2-48.2); LYMPHOCYTES ABSOLUTE AUTO 2.4 x10-3/uL (1.0-4.4); MEAN CORPUSCULAR HGB CONC 33.6 g/dL (31.9-34.8); MEAN CORPUSCULAR VOLUME 89.4 fL (76.7-100.5); MEAN PLATELET VOLUME 8.3 fL (7.1-12.4); MONOCYTES ABSOLUTE AUTO 0.9 x10-3/uL (0.3-1.0); MONOCYTES PERCENT AUTO 9.6 % (4.4-15.7); NEUTROPHILS PERCENT AUTO 63.5 % (30.8-76.2); PLATELET COUNT,PLT 250 x10(3)uL (151-488); RED BLOOD CELL COUNT 5.01 x10(6)uL (3.60-5.20); RED CELL DISTRIBUTION WIDTH 12.7 % (12.3-16.5); WHITE BLOOD CELL COUNT,WBC 9.4 x10-3/uL (3.0-10.3)
[2023-11-21 13:37] LABS: BLOOD UREA NITROGEN,BUN 18 mg/dL (7-18); CALCIUM 9.1 mg/dL (8.6-10.2); CARBON DIOXIDE,CO2 28 mmol/L (21-32); CHLORIDE,CL 103 mmol/L (100-110); CREATININE 0.9 mg/dL (0.55-1.02); EST CRCL DRUG DOSING (CG) 74.92 mL/min; ESTIMATED GFR 90 mL/min (>60); GLUCOSE RANDOM 81 mg/dL (80-116); POTASSIUM,K 3.7 mmol/L (3.5-5.3); SODIUM,NA 143 mmol/L (135-145)
[2023-11-21 13:43] LABS: A/G RATIO 1.2; ALANINE AMINOTRANSFERASE,ALT 17 U/L (12-36); ALBUMIN 4.3 g/dL (3.5-5.2); ALKALINE PHOSPHATASE 40 IU/L (56-112); ASPARTATE AMNIOTRANSFERASE,AST 13 IU/L (5-25); BILIRUBIN TOTAL 0.7 mg/dL (0.1-1.3); MAGNESIUM 2.1 mg/dL (1.8-2.5); PROTEIN TOTAL,TP 7.8 g/dL (6.0-8.0)
[2023-11-21 13:45] LABS: APPEARANCE,URINE SLIGHTLY CLOUDY (CLEAR); BACTERIA,URINE MODERATE (NS); BILIRUBIN,URINE NEGATIVE (NEGATIVE); COLOR,URINE YELLOW (YELLOW); GLUCOSE,URINE NORMAL (NORMAL); KETONES,URINE 50 mg/dL (NEGATIVE); LEUKOCYTE ESTERASE,URINE MODERATE (NEGATIVE); MUCUS,URINE MANY (NS); NITRITE,URINE NEGATIVE (NEGATIVE); OCCULT BLOOD,URINE NEGATIVE (NEGATIVE); PROTEIN,URINE NEGATIVE (NEGATIVE); RBC,URINE 0-5 (0-5); SQUAMOUS EPITHELIAL CELLS,UR MANY (NS,R,O); UROBILINOGEN,URINE NORMAL (NEGATIVE); WBC,URINE 0-5 (0-5)
[2023-11-21] MEDS: Ondansetron 4 MG/2 ML SDV IVPUSH ONE (14:40)
[2023-11-21 15:58] VITALS: BP 112/74; PULSE 65
== END 2023-11-21 15:58 | disposition home or self-care (01) ==
LOC: FB.ED 12:35
DX: O21.9 Vomiting of pregnancy, unspecified (principal); O99.891 Other specified diseases and conditions complicating pregnancy; R19.7 Diarrhea, unspecified; O99.281 Endocrine, nutritional and metabolic diseases complicating pregnancy, first trimester; Z91.048 Other nonmedicinal substance allergy status; Z79.899 Other long term (current) drug therapy; Z90.49 Acquired absence of other specified parts of digestive tract; Z3A.01 Less than 8 weeks gestation of pregnancy
CPT/HCPCS: 36415; 80053; 81001; 83605; 83735; 85025; 86140; 96361; 96374; 96375; 99284; J2405; J2550; J3490; J7030

== ENCOUNTER 2023-12-24 11:46 | Emergency (ER) | payer MEDICAID ==
[2023-12-24] MEDS ORDERED: Sodium Chloride 0.9% 10 ML Syringe FLUSH PRN (12:08)
[2023-12-24] MEDS: Acetaminophen 500 MG Tab PO ONE (12:30)
[2023-12-24] MEDS: Ondansetron 4 MG/2 ML SDV IVPUSH ONE (12:30)
[2023-12-24 12:37] LABS: BASOPHILS PERCENT AUTO 0.2 % (0.2-1.5); EOSINOPHILS ABSOLUTE AUTO 0.1 x10-3/uL (0.0-0.8); EOSINOPHILS PERCENT AUTO 1.3 % (0.6-8.1); HEMATOCRIT 41.9 % (34.2-48.2); HEMOGLOBIN 13.9 g/dL (11.4-15.5); LYMPHOCYTES ABSOLUTE AUTO 2.3 x10-3/uL (1.0-4.4); LYMPHOCYTES PERCENT AUTO 31.5 % (18.4-52.1); MEAN CORPUSCULAR HEMOGLOBIN 29.3 pg (23.9-33.9); MEAN CORPUSCULAR HGB CONC 33.2 g/dL (31.9-34.8); MEAN CORPUSCULAR VOLUME 88.3 fL (76.7-100.5); MEAN PLATELET VOLUME 8.2 fL (7.1-12.4); MONOCYTES ABSOLUTE AUTO 0.6 x10-3/uL (0.3-1.0); MONOCYTES PERCENT AUTO 8.5 % (4.4-15.7); NEUTROPHILS ABSOLUTE AUTO 4.2 x10-3/uL (1.5-6.3); NEUTROPHILS PERCENT AUTO 58.5 % (30.8-76.2); PLATELET COUNT,PLT 236 x10(3)uL (151-488); RED BLOOD CELL COUNT 4.74 x10(6)uL (3.60-5.20); RED CELL DISTRIBUTION WIDTH 12.6 % (12.3-16.5); WHITE BLOOD CELL COUNT,WBC 7.3 x10-3/uL (3.0-10.3)
[2023-12-24] MEDS: Sodium Chloride 0.9% 1,000 ML IV SCH (12:38)
[2023-12-24 12:40] LABS: BLOOD UREA NITROGEN,BUN 14 mg/dL (7-18); CALCIUM 8.5 mg/dL (8.6-10.2); CARBON DIOXIDE,CO2 25 mmol/L (21-32); CHLORIDE,CL 104 mmol/L (100-110); CREATININE 0.7 mg/dL (0.55-1.02); ESTIMATED GFR 122 mL/min (>60); GLUCOSE RANDOM 80 mg/dL (80-116); POTASSIUM,K 3.6 mmol/L (3.5-5.3); SODIUM,NA 139 mmol/L (135-145)
[2023-12-24 13:18] LABS: BILIRUBIN,URINE NEGATIVE (NEGATIVE); GLUCOSE,URINE NORMAL (NORMAL); KETONES,URINE 50 mg/dL (NEGATIVE); LEUKOCYTE ESTERASE,URINE LARGE (NEGATIVE); NITRITE,URINE NEGATIVE (NEGATIVE); OCCULT BLOOD,URINE TRACE (NEGATIVE); PROTEIN,URINE NEGATIVE (NEGATIVE); UROBILINOGEN,URINE NORMAL (NEGATIVE)
[2023-12-24 13:22] LABS: APPEARANCE,URINE SLIGHTLY CLOUDY (CLEAR); COLOR,URINE YELLOW (YELLOW)
[2023-12-24 14:25] VITALS: BP 119/65; PULSE 84
== END 2023-12-24 14:01 | disposition home or self-care (01) ==
LOC: FB.ED 11:46
DX: O99.891 Other specified diseases and conditions complicating pregnancy (principal); R51.9 Headache, unspecified; O23.41 Unspecified infection of urinary tract in pregnancy, first trimester; Z3A.12 12 weeks gestation of pregnancy; Z90.49 Acquired absence of other specified parts of digestive tract; Z91.048 Other nonmedicinal substance allergy status
CPT/HCPCS: 80048; 81003; 85025; 87086; 96361; 96374; 99284; A9270; J2405; J7030

== ENCOUNTER 2024-02-09 09:21 | Emergency (ER) | payer MEDICAID ==
[2024-02-09] MEDS ORDERED: Sodium Chloride 0.9% 10 ML Syringe FLUSH PRN (09:37)
[2024-02-09 10:02] LABS: BASOPHILS PERCENT AUTO 0.4 % (0.2-1.5); EOSINOPHILS ABSOLUTE AUTO 0.2 x10-3/uL (0.0-0.8); EOSINOPHILS PERCENT AUTO 2.4 % (0.6-8.1); HEMATOCRIT 35.6 % (34.2-48.2); LYMPHOCYTES ABSOLUTE AUTO 2.3 x10-3/uL (1.0-4.4); MEAN CORPUSCULAR HEMOGLOBIN 29.7 pg (23.9-33.9); MEAN CORPUSCULAR HGB CONC 33.6 g/dL (31.9-34.8); MEAN CORPUSCULAR VOLUME 88.4 fL (76.7-100.5); MEAN PLATELET VOLUME 8.1 fL (7.1-12.4); MONOCYTES ABSOLUTE AUTO 0.8 x10-3/uL (0.3-1.0); MONOCYTES PERCENT AUTO 8.6 % (4.4-15.7); NEUTROPHILS ABSOLUTE AUTO 5.6 x10-3/uL (1.5-6.3); NEUTROPHILS PERCENT AUTO 62.6 % (30.8-76.2); PLATELET COUNT,PLT 236 x10(3)uL (151-488); RED BLOOD CELL COUNT 4.03 x10(6)uL (3.60-5.20); RED CELL DISTRIBUTION WIDTH 12.5 % (12.3-16.5)
[2024-02-09 10:04] LABS: BLOOD UREA NITROGEN,BUN 8 mg/dL (7-18); BUN/CREATININE RATIO 13.3 (9-20); CARBON DIOXIDE,CO2 26 mmol/L (21-32); CHLORIDE,CL 106 mmol/L (100-110); CREATININE 0.6 mg/dL (0.55-1.02); EST CRCL DRUG DOSING (CG) 112.38 mL/min; ESTIMATED GFR 127 mL/min (>60); GLUCOSE RANDOM 82 mg/dL (80-116); POTASSIUM,K 3.7 mmol/L (3.5-5.3); SODIUM,NA 138 mmol/L (135-145)
[2024-02-09] MEDS: Sodium Chloride 0.9% 1,000 ML IV SCH (10:08)
[2024-02-09] MEDS: Ondansetron 4 MG/2 ML SDV IVPUSH ONE (10:08)
[2024-02-09 11:46] VITALS: BP 117/65; PULSE 74
== END 2024-02-09 11:38 | disposition home or self-care (01) ==
LOC: FB.ED 09:21
DX: O21.9 Vomiting of pregnancy, unspecified (principal); Z91.048 Other nonmedicinal substance allergy status; Z3A.00 Weeks of gestation of pregnancy not specified
CPT/HCPCS: 36415; 80048; 85025; 96361; 96374; 99284; J2405; J7030

== ENCOUNTER 2024-09-22 19:48 | Emergency (ER) | payer MEDICAID ==
[2024-09-22] MEDS ORDERED: Lidocaine 2% 20 ML MDV INFILT ONE (19:49)
[2024-09-22 20:07] VITALS: PULSE 90
[2024-09-22 21:57] VITALS: BP 132/76
== END 2024-09-22 21:27 | disposition home or self-care (01) ==
LOC: FB.ED 19:48
DX: S61.217A Laceration without foreign body of left little finger without damage to nail, initial encounter (principal); Z79.899 Other long term (current) drug therapy; Z91.048 Other nonmedicinal substance allergy status; W22.09XA Striking against other stationary object, initial encounter; Y93.68 Activity, volleyball (beach) (court)
CPT/HCPCS: 12002; 73140-F4; 99283; J2003

== ENCOUNTER 2025-02-28 19:24 | Emergency (ER) | payer MEDICAID ==
[2025-02-28] MEDS: Ondansetron 4 MG Tab.DIS PO ONE (20:01)
[2025-03-01 01:49] VITALS: BP 141/76; PULSE 84
== END 2025-02-28 21:00 | disposition home or self-care (01) ==
LOC: SUPCPDRO 19:24 → FB.ED 19:24
DX: S09.90XA Unspecified injury of head, initial encounter (principal); Z91.048 Other nonmedicinal substance allergy status; Z79.899 Other long term (current) drug therapy; Y04.8XXA Assault by other bodily force, initial encounter; Y93.89 Activity, other specified
CPT/HCPCS: 70450; 99285; A9270; Q0162; 99284